=== PATIENT | male | born 1935 | race Caucasian/White ===

== ENCOUNTER 2018-04-12 05:13 | Observation (INO) | payer MEDICARE ==
[~2018-04-12] VITALS: Ht 175.3 cm; Wt 79.4 kg
[2018-04-12] VITALS (7 sets, daily range): BP systolic 123–161; BP diastolic 75–99
[2018-04-12 05:33] LABS: BASOPHILS % (AUTO) 0.6 % (0.0-5.0); EOSINOPHILS % (AUTO) 5.5 % (0.0-8.0); HEMATOCRIT 41.7 % (42-54); LYMPHOCYTES % (AUTO) 34.2 % (21.0-51.0); MEAN CORPUSCULAR HEMOGLOBIN 31.5 pg (27.0-33.0); MEAN CORPUSCULAR HGB CONC 34.3 g/dL (32.0-36.0); MONOCYTES % (AUTO) 9.8 % (3.0-13.0); NEUTROPHILS % (AUTO) 49.9 % (40.0-77.0); NUCLEATED RED BLOOD CELLS 0.1 % (0.0-0.19); PLATELET COUNT (AUTO) 250 K/uL (130-400); RED BLOOD CELL COUNT(AUTO) 4.53 MIL/uL (4.50-6.20); WHITE BLOOD COUNT (AUTO) 5.8 K/uL (4.8-10.8)
[2018-04-12 05:45] LABS: INR 0.97 (0.85-1.15); PARTIAL THROMBOPLASTIN TIME 28.2 SEC (26.3-35.5); PROTHROMBIN TIME 10.2 SEC (9.6-11.6)
[2018-04-12 05:47] LABS: CREATININE 1.1 mg/dL (0.5-1.5); POTASSIUM 4.4 mmol/L (3.5-5.1)
[2018-04-12 05:56] LABS: ALBUMIN 3.7 g/dL (3.5-5.0); BILIRUBIN,TOTAL 0.4 mg/dL (0.2-1.0); TOTAL PROTEIN, SERUM 6.9 g/dL (6.0-8.3)
[2018-04-12 06:28] LABS: APPEARANCE,URINE Clear (CLEAR); BILIRUBIN,URINE Negative (NEGATIVE); COLOR,URINE Dark Yellow (YELLOW); GLUCOSE, URINE (UA) Negative (NEGATIVE); KETONES,URINE Trace mg/dL (NEGATIVE); LEUKOCYTE ESTERASE ,URINE Trace (NEGATIVE); NITRATE,URINE Negative (NEGATIVE); OCCULT BLOOD,URINE Negative (NEGATIVE); PROTEIN,URINE Negative (NEGATIVE)
[2018-04-12] MEDS ORDERED: SODIUM CHLORIDE 0.9% 1000ML 1,000 ML IV SCH (06:50)
[2018-04-12 07:13] LABS: BACTERIA,URINE Rare /HPF (None Seen); MUCUS,URINE Rare LPF (None Seen); RBC,URINE 0-1 /HPF (0-1); SQUAMOUS EPITHELIAL CELL,UR Rare /HPF (0-2); WBC,URINE 0-1 /HPF (0-1)
[2018-04-12 08:20] LABS: CREATINE KINASE, TOTAL 76 U/L (21-232); MYOGLOBIN 64 ng/mL (10-92); TROPONIN I < 0.04 ng/mL (0.00-0.06)
[2018-04-12] MEDS ORDERED: ENOXAPARIN SODIUM 30 MG/0.3 ML SQ ONE (08:36)
[2018-04-12] MEDS ORDERED: FAMOTIDINE 20MG TAB 20 MG TAB ONE (08:36)
[2018-04-12] MEDS ORDERED: SODIUM CHLORIDE 0.9% 1000ML 1,000 ML IV ONE (08:36)
[2018-04-12] MEDS ORDERED: ENOXAPARIN SODIUM 30 MG/0.3 ML SQ SCH (09:00)
[2018-04-12] MEDS ORDERED: ASPI-1181 PO (11:42)
[2018-04-12] MEDS ORDERED: TAMS0.4C32 PO (11:42)
[2018-04-12] MEDS ORDERED: DICL75TA5 PO (11:42)
[2018-04-12] MEDS ORDERED: PHARMACY COMMUNICATION MISC SCH (11:45)
[2018-04-12 15:56] LABS: CREATINE KINASE, TOTAL 81 U/L (21-232); MYOGLOBIN 49 ng/mL (10-92); TROPONIN I < 0.04 ng/mL (0.00-0.06)
[2018-04-12] MEDS: AMPICILLIN 2GM+NS 100ML 100 ML IV SCH (22:08)
[2018-04-12] MEDS: FAMOTIDINE 20MG TAB 20 MG TAB PO SCH (22:09)
[2018-04-12 23:32] LABS: CREATINE KINASE, TOTAL 89 U/L (21-232); MYOGLOBIN 58 ng/mL (10-92); TROPONIN I < 0.04 ng/mL (0.00-0.06)
[2018-04-13] MEDS: AMPICILLIN 2GM+NS 100ML 100 ML IV SCH ×2 (03:14→09:59)
[2018-04-13 03:46] VITALS: BP 145/89
[2018-04-13 04:14] LABS: HEMATOCRIT 37.9 % (42-54); MEAN CORPUSCULAR HEMOGLOBIN 31.3 pg (27.0-33.0); MEAN CORPUSCULAR VOLUME 91.9 fL (79-99); NUCLEATED RED BLOOD CELLS 0.1 % (0.0-0.19); PLATELET COUNT (AUTO) 188 K/uL (130-400); RED BLOOD CELL COUNT(AUTO) 4.12 MIL/uL (4.50-6.20); RED CELL DISTRIBUTION WIDTH 13.9 % (11.0-15.5); WHITE BLOOD COUNT (AUTO) 5.3 K/uL (4.8-10.8)
[2018-04-13 04:32] LABS: ALBUMIN 3.2 g/dL (3.5-5.0); BILIRUBIN,TOTAL 0.3 mg/dL (0.2-1.0); POTASSIUM 4.1 mmol/L (3.5-5.1)
[2018-04-13 07:00] VITALS: BP 159/68
[2018-04-13] MEDS ORDERED: IBUPROFEN 800 MG TAB PO PRN (07:45)
[2018-04-13] MEDS: FAMOTIDINE 20MG TAB 20 MG TAB PO SCH (10:00)
[2018-04-13 11:00] VITALS: BP 145/84
[2018-04-13] MEDS ORDERED: AMOX-429 PO (13:45)
== END 2018-04-13 14:30 | disposition home or self-care (01) ==
LOC: EDH 05:13 → EDHIP 06:50 → 2DH 10:43
PROVIDERS: ADMIT Internal Medicine; ATTEND Internal Medicine
DX: R55 Syncope and collapse (principal); N40.0 Benign prostatic hyperplasia without lower urinary tract symptoms; J32.0 Chronic maxillary sinusitis; M19.90 Unspecified osteoarthritis, unspecified site; M47.812 Spondylosis without myelopathy or radiculopathy, cervical region
CPT/HCPCS: 36415 ×2; 70450; 71045; 72125; 80053 ×2; 81001; 82550 ×3; 82948; 83874 ×3; 84484 ×4; 85025; 85027; 85610; 85730; 93005 ×3; 93880; 96365; 96366; 96372; 99284; G0378 ×32; J0290 ×3; J1650 ×2; J7030 ×2